=== PATIENT | female | born 1980 | race Caucasian/White ===

== ENCOUNTER → 2019-03-01 | Outpatient (CLI) | payer BC ==
--- NOTE | 2019-03-02 08:18 | MR ---
EXAMINATION TYPE: MR hip LT wo con DATE OF EXAM: 03/01/2019 COMPARISON: None. HISTORY: Lt Hip pain for 2 months per patient. Polyarthritis per order. Standard multiplanar, multisequence MRI departmental protocol Multiplanar, multisequence images of the pelvis focusing on the left hip were acquired. FINDINGS: Bone marrow signal intensity shows heterogeneity consistent with red marrow reconversion. A t intertrochanteric region laterally in the left proximal femur there is oval 1.6 cm lesion of T1 hyp ointensity and T2 hyperintensity coronal image 10 and sagittal image 11 without definitive cortical b reakthrough or adjacent soft tissue mass. There is focus of diminished T1 and increased T2 signal inv olving the posterior acetabulum axial image 16 with additional focus superior posterior acetabulum sa gittal image 20 noted. Bone marrow signal intensity in the femoral head is maintained. Cervical shape is present. No significant joint effusion is seen. No suspicious edema at level of greater or lesser trochanters bilaterally. Muscle bulk in bilateral t highs is symmetric and felt within normal limits. No groin adenopathy. No groin hernias are present. There is anteverted uterus seen with slight arcuate type morphology axial image 20. Small amount of f ree fluid pelvic cul-de-sac axial image 20 is present. No suspicious bowel dilatation. Visualized shahab dder is within normal limits. Follicles in bilateral ovaries noted axial image 20. There are additional areas of T2 hyperintensity in the left sacrum coronal image 13, right iliac bone near SI joint coronal image 13, as well as right acetabulum coronal image 7. IMPRESSION: 1. Focal osseous lesion lateral subtrochanteric region left proximal femur needs plain film correlati on. Areas of abnormal bone marrow signal intensity in the posterior and superior posterior glenoid of uncertain etiology. Metastatic disease would need to be considered given additional lesions througho ut the pelvis. Advise whole body bone scan follow-up and clinical correlation.
== END | disposition home or self-care (01) ==
LOC: RADMRIMAIN 18:58
PROVIDERS: ATTEND Internal Medicine Rheumatology
DX: M89.9 Disorder of bone, unspecified (principal); R93.7 Abnormal findings on diagnostic imaging of other parts of musculoskeletal system; M13.0 Polyarthritis, unspecified

== ENCOUNTER → 2019-03-03 | Outpatient (CLI) | payer BC ==
--- NOTE | 2019-03-03 15:21 | NM ---
EXAMINATION TYPE: NM bone scan whole body DATE OF EXAM: 03/03/2019 COMPARISON: MRI left hip 2 days ago. HISTORY: Disseminated malignant neoplasm per order. Recent abnormal MRI. Delayed whole-body scanning was performed following the injection of 21.2 mCi Tc 99m MDP. Images acq uired 3 hours post injection. FINDINGS: There is slightly more prominent radiotracer uptake inferior medial left acetabulum corresponding to one of the T2 hyperintense lesions on bone scan. There is focus of radiotracer uptake left mid cervic al spine also identified. Additional lesions throughout the pelvic structures including the iliac bon es and sacrum as well as proximal left femur subtrochanteric level do not show definitive areas of ra diotracer uptake. IMPRESSION: As above. No convincing evidence of metastatic disease to the bone. Metabolic processes n eed to be considered. Consider plain film correlation of proximal left femur lesion.
== END ==
LOC: RADNMMAIN 10:57
PROVIDERS: ATTEND Internal Medicine Rheumatology
DX: C80.0 Disseminated malignant neoplasm, unspecified (principal)
CPT/HCPCS: 78306; A9503

== ENCOUNTER → 2019-03-06 | Outpatient (CLI) | payer BC ==
--- NOTE | 2019-03-06 14:19 | CT ---
EXAMINATION TYPE: CT ChestAbdPelvis w con DATE OF EXAM: 03/06/2019 COMPARISON: Whole body bone scan March 03, 2019. MRI left hip March 01, 2019 HISTORY: Abnormal left hip xray, mri, and bone scan CT DLP: 416.7 mGycm. Automated Exposure Control for Dose Reduction was Utilized. CONTRAST: CT scan of the thorax, abdomen and pelvis is performed with IV Contrast, patient injected with 100 mL of Isovue 300. FINDINGS: LUNGS: There is medial right midlung masslike consolidation measuring 3.6 x 3.4 cm axial image 37 abu tting the medial pleural surface. Remainder of both lungs are clear There is no pleural effusion or p neumothorax seen. The tracheobronchial tree is patent. MEDIASTINUM: There are no greater than 1 cm hilar or mediastinal lymph nodes. No cardiomegaly or pe ricardial effusion is seen. OTHER: Dense fibroglandular tissue is seen in both breasts. LIVER/GB: No significant abnormality is appreciated. PANCREAS: No significant abnormality is seen. SPLEEN: No significant abnormality is seen. ADRENALS: No significant abnormality is seen. KIDNEYS: No significant abnormality is seen. BOWEL: Oral contrast reaches level of cecum. Evaluation of distal bowel suboptimal. Patient is very l ittle intra-abdominal fat making evaluation also slightly suboptimal. No suspicious small large bowel dilatation. GENITAL ORGANS: Anteverted uterus is present. LYMPH NODES: No greater than 1cm abdominal or pelvic lymph nodes are appreciated. OSSEOUS STRUCTURES: No definitive lytic or sclerotic lesions identified to correspond to the areas of concern on MRI left hip. OTHER: No significant additional abnormality is seen. IMPRESSION: Masslike consolidation medial anterior right midlung could reflect focal pneumonia or rou nd atelectasis but neoplasm is not excluded though felt less likely. Consider bronchoscopy or PET/CT to further evaluate this level.
--- NOTE | 2019-03-06 14:21 | CT ---
EXAMINATION TYPE: CT soft tissue neck w con DATE OF EXAM: 03/06/2019 HISTORY: Abnormal left hip xray, mri, and bone scan COMPARISON: NONE CT DLP: 213.1 mGycm. Automated Exposure Control for Dose Reduction was Utilized. TECHNIQUE: CT scan of the neck is performed with IV Contrast, patient injected with 100 mL of Isovue 300, axial images are obtained, coronal and sagittal reformatted images are reviewed. FINDINGS: Airway: No gross abnormality seen. Parotid/submandibular glands: No gross abnormality seen. Carotid/Vascular Structures: No significant plaque or stenosis at carotid bulb level bilaterally. Osseous Structures: Slight levoconvex scoliotic curvature centered upper thoracic spine may be positi onal. No definitive suspicious focal lytic or sclerotic lesions Other: No definitive greater than 1 cm neck adenopathy. IMPRESSION: No definitive suspicious masses or adenopathy.
== END ==
LOC: RADCTMAIN 12:06
PROVIDERS: ATTEND Internal Medicine Rheumatology
DX: C79.51 Secondary malignant neoplasm of bone (principal); C80.1 Malignant (primary) neoplasm, unspecified
CPT/HCPCS: 70491; 71260; 74177; Q9967

== ENCOUNTER → 2019-03-07 | Outpatient (CLI) | payer BC ==
--- NOTE | 2019-03-08 08:08 | XR ---
EXAMINATION TYPE: XR chest 2V DATE OF EXAM: 03/07/2019 COMPARISON: NONE HISTORY: Chest pain TECHNIQUE: Frontal and lateral views of the chest are obtained. FINDINGS: Right middle lobe masslike opacity may reflect pneumonia however underlying neoplasm is not excluded. Strict clinical correlation and follow-up until resolution is advised. No evidence for pneumothorax. No pleural effusion. The cardiac silhouette size is within normal limits. The osseous structures are grossly intact. IMPRESSION: 1. Right middle lobe masslike opacity may reflect pneumonia however underlying neoplasm is not exclu ded. Strict clinical correlation and follow-up until resolution is advised.
--- NOTE | 2019-03-08 08:09 | XR ---
EXAMINATION TYPE: XR Hip Bilateral and AP pelvis DATE OF EXAM: 03/07/2019 CLINICAL HISTORY: pain TECHNIQUE: Single view the pelvis is submitted. 2 views of the bilateral hips are also submitted. FINDINGS: No evidence for fracture, dislocation or bony lesion. Joint spaces are well-preserved. S I joints appear symmetric. IMPRESSION: 1. No acute fracture or dislocation seen. ICD 10 NO FRACTURE, INITIAL EVALUATION
--- NOTE | 2019-03-08 08:19 | MM ---
Reason for exam: additional evaluation requested from prior study. Last mammogram was performed 7 years and 5 months ago. History: Patient had first child at age 33. Took hormonal contraceptives for 13 years beginning at age 19. Physical Findings: Nurse did not find any significant physical abnormalities on exam. MG 3D Diag Mammo W/Cad JUAN Bilateral CC and MLO view(s) were taken. LM, CC with magnification, and LM with magnification view(s) were taken of the right breast. Prior study comparison: October 16, 2011, CAD bilateral diagnostic mammogram. The breast tissue is extremely dense which could obscure a lesion on mammography. Finding: There are fine, diffuse/scattered calcifications in both breasts. There are more focal grouping punctate calcifications right upper outer quadrant posterior position. These results were verbally communicated with the patient and result sheet given to the patient on 03/07/19. ASSESSMENT: Suspicious, BI-RAD 4 RECOMMENDATION: Stereotactic core biopsy of the right breast. Called Dr. Barrios with mammographic findings and Dr. Barrios will order biopsy for patient to have done with radiologist and will give result to patient, will refer to surgeon if needed. Biopsy scheduled for 03/10/19 at 10:20. PRELIMINARY REPORT CALLED AND FAXED TO DR. BARRIOS ON 06/18/19.
== END | disposition home or self-care (01) ==
LOC: RADMAMWWP 14:53
PROVIDERS: ATTEND Internal Medicine Rheumatology
DX: C80.1 Malignant (primary) neoplasm, unspecified (principal); M25.552 Pain in left hip
CPT/HCPCS: 71046; 73521; 77062; 77066

== ENCOUNTER → 2019-03-10 | Day surgery (SDC) | payer BC ==
[2019-03-10 09:36] VITALS: RESP 16; BMI 22.1
[2019-03-10 12:08] VITALS: BP 117/73; PULSE 74; TEMP 98.4
--- NOTE | 2019-03-10 12:42 | MM ---
Stereotactic Mammotome core biopsy right breast. HISTORY: Microcalcifications right breast The microcalcifications in question within the right breast were targeted by the undersigned. Procedure was performed by the undersigned. Informed consent was obtained and all of the patients questions were answered. The standard sterile technique was utilized and appropriate local anesthesia was obtained with 1% lidocaine. Mammotome probe was advanced and multiple core samples were obtained and sent to pathology for interpretation. Microclip marker was deployed at the site of biopsy. Post procedural mammogram demonstrates appropriate deployment of radiopaque clip marker. The patient tolerated the procedure well and left the department in stable condition. Pathology results are pending. IMPRESSION: Successful stereotactic core biopsy right breast with pathology results pending. Pathology Results: Benign RIGHT BREAST, STEREOTACTIC CORE BIOPSY: Fibrocystic changes including fibrosis, adenosis and calcifications. Negative for malignancy. Recommendation Follow up mammogram of the right breast in 6 months. DAVID
== END ==
LOC: RADMAMWWP 09:13
PROVIDERS: ATTEND Internal Medicine Rheumatology
DX: N60.31 Fibrosclerosis of right breast (principal); N60.21 Fibroadenosis of right breast; R92.0 Mammographic microcalcification found on diagnostic imaging of breast
CPT/HCPCS: 88305; 19081; J2001

== ENCOUNTER → 2019-03-11 | Outpatient (CLI) | payer BC ==
--- NOTE | 2019-03-13 06:53 | PE ---
EXAMINATION TYPE: PET CT fusion skull to thigh DATE OF EXAM: 03/11/2019 COMPARISON: CT neck and CT chest abdomen and pelvis March 06, 2019. HISTORY: Lung mass. TECHNIQUE: Following the intravenous administration of 12.07 mCi of F-18 FDG, whole body images are performed from the skull base to the midthigh. Images are reviewed on the computer in the coronal, a xial, and sagittal planes. Reconstructed rotating images are created on independent workstation and reviewed on the computer. A noncontrast CT is performed in conjunction with the PET scan. SCAN: Initial Scan FINDINGS: SKULL BASE AND NECK: There are suspicious hypermetabolic right supraclavicular lymph node along the inferior margin right thyroid gland measuring 13 x 8 mm axial image 57, max SUV is 3.07. CHEST, MEDIASTINUM, AND HILAR REGION: There is suspicious hypermetabolic medial right mid lung mass w ith peripheral atelectasis anteriorly measuring roughly 2.3 x 2.1 cm axial image 95, max SUV is 6.03 on PET axial image 99. There is abnormal thoracic adenopathy for reference there is subcarinal 2.0 x 1.0 cm minimally hyperm etabolic lymph node axial image 82 max SUV is 2.50. There is mildly hypermetabolic subcentimeter righ t hilar lymph node on axial image 78, Max SUV is 1.82. There is hypermetabolic anterior superior medi astinal lymph node measuring 1.2 x 1.0 cm axial image 68, max SUV is 3.16. No areas of suspicious hypermetabolic uptake or masses identified in either breast or axilla. ABDOMEN AND PELVIS: No suspicious hypermetabolic uptake. No adrenal masses. OSSEOUS STRUCTURES: No definitive areas of abnormal hypermetabolic uptake to correspond to the T2 hyp erintense osseous lesions in the left proximal femur and left sacrum for reference. OTHER CT: Circular device in vaginal canal likely device to prevent intrauterine conception. Some con trast from recent CT remains in distal bowel loops. IMPRESSION: Only suspicious area is anterior right midlung masslike consolidation with nonspecific th oracic lymph nodes as detailed above. Primary lung carcinoma cannot be excluded. No suspicious hyperm etabolic osseous lesions noted which correlates with bone scan March 03, 2019.
== END | disposition home or self-care (01) ==
LOC: RADPETMAIN 09:49
PROVIDERS: ATTEND Internal Medicine Rheumatology
DX: R91.8 Other nonspecific abnormal finding of lung field (principal)
CPT/HCPCS: 78815; A9552

== ENCOUNTER 2019-03-28 08:51 | Day surgery (SDC) | payer BC ==
[2019-03-28 09:46] VITALS: PULSE 100; RESP 18; TEMP 98.1
[2019-03-28] MEDS ORDERED: ALPRAZolam 0.5 MG TAB PO STA (09:49)
[2019-03-28 11:54] VITALS: BP 113/55
--- NOTE | 2019-03-28 13:02 | US ---
EXAMINATION TYPE: US biopsy lymph node, US FNA first lesion DATE OF EXAM: 03/28/2019 HISTORY: Abnormal PET/CT, right supraclavicular adenopathy. FINDINGS: Maximal barrier technique was utilized. The skin overlying a suitable path to the patient' s supraclavicular adenopathy on the right was localized with ultrasound and the overlying skin preppe d and draped. Ultrasound was utilized with sterile technique. Lidocaine was used for local anesthes ia. 2 passes with a 25-gauge needle were performed and fine-needle aspiration submitted to cytology. A skin cosme was made with a scalpel. An 18-gauge needle was advanced under direct ultrasound guidan ce and core specimen obtained of the mass. Second core was then obtained. Specimen submitted in forma priscilla and additional core and sterile saline to Pathology. Following the procedure, hemostasis achieve d and the patient is discharged in stable condition without complication. IMPRESSION:STATUS POST ULTRASOUND GUIDED CORE BIOPSY OF right supraclavicular adenopathy, PATHOLOGY I S PENDING. THIS PROCEDURE IS PERFORMED BY THE UNDERSIGNED.
== END 2019-03-28 11:40 | disposition home or self-care (01) ==
LOC: RADPROMAIN 08:51
PROVIDERS: ATTEND Internal Medicine Critical Care Medicine
DX: R59.9 Enlarged lymph nodes, unspecified (principal)
CPT/HCPCS: 10005; 38505; 76942; 88173; 88305; 88341; 88342

== ENCOUNTER 2019-04-17 09:22 | Day surgery (SDC) | payer BC ==
[2019-04-14 12:48] VITALS: BMI 21.8
[~2019-04-17 09:22] MED LIST: DEXAMETHASONE SOD PHOSPHATE 10 MG/ML 1 ML VIAL IV ONE; HYDROmorphone 0.5 MG/0.5 ML SYRINGE IVP PRN; LACTATED RINGERS 1,000 ML IV SCH; MIDAZOLAM 2 MG/2 ML VIAL IV PRN; ONDANSETRON 4 MG/2 ML VIAL IVP ONE; Pre Op ABX Message 1 EACH MISC MISCELLANE ONE; SCOPOLAMINE 1.5MG/72HR PATCH TRANSDERM ONE
[2019-04-17] MEDS ORDERED: MIDAZOLAM 2 MG/2 ML VIAL ONE (10:05)
[2019-04-17] MEDS ORDERED: LIDOCAINE 1% INJ 10MG/ML (20 ML MDV) ONE (10:05)
[2019-04-17] MEDS ORDERED: PROPOFOL 10 MG/ML 20 ML VIAL IV ONE (10:05)
[2019-04-17] MEDS ORDERED: PHENYLEPHRINE-0.9% NACL SYG 1 MG/10 ML SYRINGE ONE (10:05)
[2019-04-17] MEDS ORDERED: fentaNYL (PF) 50 MCG/ML 2 ML AMP ONE (10:05)
[2019-04-17] MEDS ORDERED: KETOROLAC 30 MG/ML 1 ML VIAL ONE (10:05)
[2019-04-17] MEDS ORDERED: IV FLUID CONTINUATION 800 ML IV ONE ×2 (10:10)
[2019-04-17] MEDS ORDERED: LIDOCAINE (PF) 10 MG/ML 2 ML VIAL SQ ONE ×2 (10:24→10:35)
[2019-04-17] MEDS ORDERED: HEPARIN SODIUM,PORCINE 100 UNIT/ML 5 ML VIAL IV ONE ×2 (10:24)
[2019-04-17] MEDS ORDERED: SODIUM CHLORIDE 0.9% 100 ML with ceFAZolin 2,000 MG IV ONE ×2 (10:30)
[2019-04-17] MEDS ORDERED: LACTATED RINGERS 1,000 ML IV ONE (10:51)
[2019-04-17] MEDS ORDERED: NALOXONE 0.4 MG/ML 1 ML VIAL IV PRN (11:04)
[2019-04-17 11:16] VITALS: TEMP 97
--- NOTE | 2019-04-17 11:16 | P.OP ---
Date of Procedure: 04/17/19 Procedure(s) Performed: PREOPERATIVE DIAGNOSIS: Lymphoma POSTOPERATIVE DIAGNOSIS: Same PROCEDURE: Port-A-Cath placement SURGEON: Víctor EBL: Minimal ANESTHESIA: Sedation COMPLICATIONS: None OPERATIVE PROCEDURE: Patient was brought and placed on the operative table in the supine position. The patient was sedated per anesthesia that time. The chest and neck were prepped and draped in usual sterile fashion. The ultrasound probe was used to identify the location of the right internal jugular vein. The skin was localized with lidocaine. The Seldinger needle was advanced into the IJ under ultrasound guidance. The wire was advanced through the needle under fluoroscopic guidance into the superior vena cava. A port pocket was created in the right infraclavicular location. The catheter was tunneled from the wire entrance site to the port pocket. The port was then connected to the catheter. The dilator introducer was threaded over the guidewire. The guidewire and dilator were then removed. The catheter was advanced through the introducer and introducer was then removed. The tip was seen to be in the right atrial junction. Port was flushed with both saline and a Hep-Lock solution. There was good flow both in and out of the port. The port was sutured in underlying tissues using 3-0 silk sutures. The subcutaneous tissues were reapproximated using 3-0 Vicryl sutures and the skin at both locations using 4-0 Monocryl sutures. Skin glue and sterile dressings then applied. DISPOSITION: Stable to recovery room
--- NOTE | 2019-04-17 11:21 | FL ---
EXAMINATION TYPE: FL guided central line placemt DATE OF EXAM: 04/17/2019 CLINICAL HISTORY: Newly diagnosed neoplasm. TECHNIQUE: Fluoroscopy. COMPARISON: None. FINDINGS: Fluoroscopic guidance was provided during Port-A-Cath insertion procedure performed by Dr. Renee. A total of 5 seconds of fluoroscopic time was utilized during the procedure and single spot fluoroscopic image is acquired. Single image acquired shows portion of right internal jugular Medipor t catheter and guidewire. IMPRESSION: As Above.
--- NOTE | 2019-04-17 11:47 | XR ---
EXAMINATION TYPE: XR chest 1V confirm line [facility] DATE OF EXAM: 04/17/2019 COMPARISON: Chest x-ray March 07, 2019. HISTORY: Central line placement. TECHNIQUE: Single AP portable frontal upright view of the chest is obtained. FINDINGS: There is new right internal jugular Mediport catheter terminating at cavoatrial junction. There is no new suspicious focal air space opacity, pleural effusion, or pneumothorax seen. The card iac silhouette size is within normal limits. Right pericardial mass like lesion or neoplasm silhouet ting portions of right heart border remains present. The osseous structures are intact. IMPRESSION: New right internal jugular Mediport catheter terminating at cavoatrial junction. No pneu mothorax is evident.
[2019-04-17 12:06] VITALS: RESP 18
[2019-04-17 12:23] VITALS: BP 107/68; PULSE 79
== END 2019-04-17 12:30 | disposition home or self-care (01) ==
LOC: OR 09:22
PROVIDERS: ATTEND Surgery
DX: C85.90 Non-Hodgkin lymphoma, unspecified, unspecified site (principal); Z79.891 Long term (current) use of opiate analgesic; Z79.899 Other long term (current) drug therapy; Z80.9 Family history of malignant neoplasm, unspecified; Z87.891 Personal history of nicotine dependence; Z79.1 Long term (current) use of non-steroidal anti-inflammatories (NSAID)
CPT/HCPCS: 77001; 36571; C1788; J2250; J2001 ×2; J1642; J1100; J2405; J0690; J3010; J1885; J2370; J2704

== ENCOUNTER → 2019-06-17 | Outpatient (CLI) | payer BC ==
--- NOTE | 2019-06-18 14:46 | PE ---
Nuclear medicine PET/CT or graph history: Lymphoma, subsequent Patient received 12.1 mCi F-18 FDG intravenously in delayed scanning was performed from the skull bas e to the mid thighs. Localization and attenuation correction CT scan was performed. Correlation to prior nuclear medicine PET/CT 03/11/2019 Neck and chest: There is no evident cervical, supraclavicular, mediastinal, axillary, or hilar adenop athy. The right lung shows some consolidation in the middle lobe level, right upper lobe adjacent to the right heart. There is some associated air bronchograms. There is no pleural or pericardial effusi on. Port-A-Cath is present in the right pectoral region, catheter courses via the right internal jugu lar approach to the level of the cavoatrial junction. ABDOMEN: There is no retroperitoneal adenopathy. Retrocaval aortic left renal vein is noted incidenta lly. No evident liver mass, no suspicious hypermetabolic uptake. Osseous structures are stable. No suspicious uptake IMPRESSION: No evident adenopathy or suspicious hypermetabolic uptake, improvement compared to previo us exam. Abnormal density in the right lung. Correlate for possible pneumonia, posttreatment change.
== END | disposition home or self-care (01) ==
LOC: RADPETMAIN 09:58
PROVIDERS: ATTEND Internal Medicine Hematology & Oncology
DX: J98.4 Other disorders of lung (principal); C81.78 Other Hodgkin lymphoma, lymph nodes of multiple sites; Z92.21 Personal history of antineoplastic chemotherapy
CPT/HCPCS: 78815; A9552

== ENCOUNTER → 2019-08-30 | Outpatient (CLI) | payer BC ==
--- NOTE | 2019-08-30 17:10 | CT ---
EXAMINATION TYPE: CT ChestAbdPelvis w con DATE OF EXAM: 08/30/2019 INDICATION: Hodgkin's lymphoma. COMPARISON: Head CT 06/17/2019 CT DLP: 457.9 mGycm CONTRAST: Performed with Oral Contrast and with IV Contrast, patient injected with 100ml mL of Isovue 300. TECHNIQUE: Axial images at 5 mm thick sections. Reconstructed images in the coronal plane. Delayed images through the kidneys. FINDINGS: CT CHEST: Portion of the thyroid visualized is normal. There is a solid-appearing mass in the anterior right mediastinal border measuring 4.0 x 1.5 cm. This was present on the PET/CT. No enlarged mediastinal or hilar adenopathy is evident. The ascending aorta diameter at the level of the main pulmonary artery is 2.7 cm. The main pulmonary artery diameter at the bifurcation is 2.[address] ABDOMEN: Liver: There is a 0.4 cm hypodensity within the posterior right lobe liver. Series 3 image 65. This i s too small to classify. This could be related to a tiny cyst. A metastatic lesion cannot be excluded . This is not identified on delayed images. Spleen: Normal Pancreas: Normal Adrenal glands: The adrenal glands are normal. Gallbladder: Normal Kidneys: No masses are evident. No hydronephrosis is present. No cysts are present. Delayed images were obtained through the kidneys, which remain unremarkable. Aorta: Normal Inferior vena cava: Normal. CT PELVIS: Loops of bowel within the abdomen and pelvis are normal. There are loops of bowel which are incom pletely distended or lack oral contrast limiting their evaluation. Appendix: Not visualized. No dilated tubular structures or inflammatory changes are evident. Urinary bladder: Normal. Genitourinary structures: Uterus is normal. There is a 2.6 cm left ovarian cyst. Couple small follicl es may be within the right ovary. No free fluid is within the pelvis. Osseous structures: No suspicious lytic or sclerotic lesions. Direct lymphadenopathy: Mediastinum patti ears clear. Axillary regions are normal. No retrocrural adenopathy is evident. No periaortic or retro caval adenopathy is identified. Iliac chains appear normal. Obturator canals are normal. Inguinal reg ions are normal. IMPRESSIONS: 1. Stable appearance of a masslike area adjacent to the right cardio phrenic mediastinum. 2. Tiny hypodensity identified on early phase contrast within the posterior medial right lobe liver t oo small to classify. This is not evident on delayed images. 3. 2.6 cm left ovarian cyst. 4. No suspicious enlarged lymph nodes.
== END | disposition home or self-care (01) ==
LOC: RADPROMAIN 13:45
PROVIDERS: ATTEND Internal Medicine Hematology & Oncology
DX: N83.202 Unspecified ovarian cyst, left side (principal); R93.2 Abnormal findings on diagnostic imaging of liver and biliary tract; C81.98 Hodgkin lymphoma, unspecified, lymph nodes of multiple sites
CPT/HCPCS: 82565; 84520; 71260; 74177; 36415; J1642; Q9967 ×2

== ENCOUNTER → 2019-11-02 | Outpatient (CLI) | payer BC ==
[2019-11-02 14:34] LABS: African American GFR (CKD) >90 (>60 ml/min/1.73 sqM); Blood Urea Nitrogen 14 mg/dL (7-17); Non-African American GFR(CKD) >90 (>60 ml/min/1.73 sqM)
--- NOTE | 2019-11-03 04:34 | CT ---
EXAMINATION TYPE: CT ChestAbdPelvis w con DATE OF EXAM: 11/02/2019 COMPARISON: 08/30/2019 and 06/17/2019. 03/11/2019. HISTORY: 39-year-old female follow-up Hodgkin's lymphoma. TECHNIQUE: Contiguous axial scanning of the chest, abdomen, and pelvis performed with IV Contrast, pa tient injected with 100 mL of Isovue 300. Delayed images through the kidneys were obtained. Coronal/s agittal reconstructions performed. CT DLP: 684.2 mGycm Automated exposure control for dose reduction was used. FINDINGS: CHEST: Right anterior chest wall ejection port with catheter tip at the cavoatrial junction. Heart normal size without pericardial effusion. Previous hypermetabolic high right paratracheal lymph node remains small at 5 mm. No enlarging thorac ic lymphadenopathy. Focal consolidation medial right middle lobe measures 3.9 x 1.5 cm, unchanged from 08/30/2019 but sma ller from the initial PET/CT of 03/11/2019 where it measured 4.9 x 2.2 cm. No new consolidation or pleural effusion. ABDOMEN: No focal liver lesion or biliary ductal dilatation. Portal venous system is patent. Gallbladder, adrenal glands, kidneys, spleen, and pancreas appear within normal limits. Tiny fatty umbilical hernia. No dilated small bowel, free fluid, or free air. No mesenteric or retroperitoneal lymphadenopathy. Oral contrast progressed to the lower descending colon. No pericolonic inflammatory change. Normal ap pendix. PELVIS: Bladder is urine distended. Uterus anteverted. Both ovaries are visualized. No abnormal fluid collect ion in the pelvis or pelvic lymphadenopathy. BONES: A bone island within the posterior right femoral head is unchanged. No osseous destructive process. IMPRESSION: 1. THE ORIGINALLY HYPERMETABOLIC HIGH RIGHT PARATRACHEAL LYMPH NODE REMAINS SMALL AT 5 MM. NO NEW OR ENLARGING LYMPHADENOPATHY. 2. STABLE FOCAL CONSOLIDATION MEDIAL RIGHT MIDDLE LOBE AT 3.9 X 1.5 CM COMPARED TO 08/30/2019. SMA LLER COMPARED TO THE INITIAL PET/CT OF 03/11/2019 WHERE IT MEASURED 4.9 X 2.2 CM.
== END | disposition home or self-care (01) ==
LOC: RADPROMAIN 13:43
PROVIDERS: ATTEND Internal Medicine Hematology & Oncology
DX: C81.98 Hodgkin lymphoma, unspecified, lymph nodes of multiple sites (principal); R91.8 Other nonspecific abnormal finding of lung field
CPT/HCPCS: 82565; 84520; 71260; 74177; J1642; Q9967 ×2

== ENCOUNTER → 2019-11-03 | Outpatient (CLI) | payer BC ==
--- NOTE | 2019-11-03 10:24 | MM ---
Reason for exam: follow-up at short interval from prior study. Last mammogram was performed 8 months ago. History: Patient has history of other cancer at age 38 and had first child at age 33. Benign MG stereo VAD BX RT of the right breast, March 10, 2019. Took hormonal contraceptives for 13 years beginning at age 19. Physical Findings: Nurse did not find any significant physical abnormalities on exam. MG 3D Diag Mammo W/Cad RT CC and MLO view(s) were taken of the right breast. Prior study comparison: March 07, 2019, bilateral MG 3d diag mammo w/cad JUAN. The breast tissue is heterogeneously dense. This may lower the sensitivity of mammography. Previous mammotome biopsy in the right breast. Stable scattered calcifications and grouped upper outer quadrant calcifications at the previous biopsy site. These results were verbally communicated with the patient and result sheet given to the patient on 11/03/19. ASSESSMENT: Benign, BI-RAD 2 RECOMMENDATION: Routine screening mammogram of both breasts at age 42. (or sooner if clinically indicated)
== END | disposition home or self-care (01) ==
LOC: RADMAMWWP 07:49
PROVIDERS: ATTEND Family Medicine
DX: R92.8 Other abnormal and inconclusive findings on diagnostic imaging of breast (principal)
CPT/HCPCS: 77061; 77065

== ENCOUNTER → 2020-01-20 | Outpatient (CLI) | payer BC ==
--- NOTE | 2020-01-23 07:21 | PE ---
EXAMINATION TYPE: PET CT fusion skull to thigh DATE OF EXAM: 01/20/2020 COMPARISON: Most recent CT November 02, 2019 and older CTs. Prior PET/CT June 17, 2019 and older PET/ CT. HISTORY: Hodgkin lymphoma diagnosed on biopsy March 2019. Completed chemotherapy October 23, 2019. TECHNIQUE: Following the intravenous administration of 10.0 mCi of F-18 FDG, whole body images are p erformed from the skull base to the midthigh. Images are reviewed on the computer in the coronal, ax ial, and sagittal planes. Reconstructed rotating images are created on independent workstation and r eviewed on the computer. A noncontrast CT is performed in conjunction with the PET scan. SCAN: Subsequent Scan FINDINGS: Mean SUV mediastinum: 0.83 Mean SUV liver : 1.67 SKULL BASE AND NECK: No recurrent areas of suspicious hypermetabolic uptake. CHEST, MEDIASTINUM, AND HILAR REGION: No recurrent of suspicious hypermetabolic uptake. Persistent ma sslike consolidation anterior right midlung abutting the mediastinum measuring roughly 3.9 x 1.7 cm a xial image 96 remains ametabolic not significantly changed from most recent CT. ABDOMEN AND PELVIS: Normal excretion is seen. No new areas of suspicious hypermetabolic uptake OSSEOUS STRUCTURES: No new areas of suspicious hypermetabolic uptake. OTHER CT: Persistent right internal jugular Mediport catheter terminating in right atrium. Patient has little intra-abdominal fat. There is rounded density suspected desired contraceptive in t he lower uterine segment/vaginal canal is redemonstrated. IMPRESSION: No new areas of suspicious hypermetabolic uptake to suggest active neoplastic recurrence. No significant change from most recent PET/CT. No new adenopathy noted.
== END | disposition home or self-care (01) ==
LOC: RADPETMAIN 14:29
PROVIDERS: ATTEND Internal Medicine Hematology & Oncology
DX: C81.78 Other Hodgkin lymphoma, lymph nodes of multiple sites (principal)
CPT/HCPCS: 78815; A9552

== ENCOUNTER → 2020-04-25 | Outpatient (CLI) | payer BC ==
--- NOTE | 2020-04-25 12:29 | CT ---
EXAMINATION TYPE: CT ChestAbdPelvis w con DATE OF EXAM: 04/25/2020 COMPARISON: Most recent CT November 02, 2019 and older studies. Most recent PET/CT January 20, 2020 and o lder studies. HISTORY: Hodgkins lymphoma CT DLP: 427.30 mGycm. Automated Exposure Control for Dose Reduction was Utilized. CONTRAST: CT scan of the thorax, abdomen and pelvis is performed with oral and with IV Contrast, patient inject ed with 100 mL of Isovue 300. FINDINGS: LUNGS: There is persistent masslike consolidation anterior right mid lung medially abutting the media stinum measuring roughly 3.3 x 1.5 cm axial image 33 not significantly changed from most recent studi es where was ametabolic. No new nodules or masses. There is no pleural effusion or pneumothorax see n. The tracheobronchial tree is patent. MEDIASTINUM: There are no new greater than 1 cm hilar or mediastinal lymph nodes. Stable subcentimete r anterior superior mediastinal lymph nodes near the Three-vessel takeoff axial image 17. No cardiomegaly or pericardial effusion is seen. OTHER: Stable right internal jugular Mediport catheter. LIVER/GB: Stable mild hepatomegaly PANCREAS: No significant abnormality is seen. SPLEEN: No significant abnormality is seen. ADRENALS: No significant abnormality is seen. KIDNEYS: No significant abnormality is seen. BOWEL: Oral contrast reaches level of the sigmoid colon. Patient has very little intra-abdominal fat. No suspicious small or large bowel dilatation. GENITAL ORGANS: Anteverted uterus. LYMPH NODES: No greater than 1cm abdominal or pelvic lymph nodes are appreciated. OSSEOUS STRUCTURES: Stable tiny benign bone island right femoral head coronal image 32. OTHER: Stable small fat-containing umbilical hernia. IMPRESSION: No new or enlarging suspicious mass or adenopathy suggest active neoplastic recurrence. No significant change from most recent CT and PET/CT.
== END | disposition home or self-care (01) ==
LOC: RADPROMAIN 09:51
PROVIDERS: ATTEND Internal Medicine Hematology & Oncology
DX: C81.98 Hodgkin lymphoma, unspecified, lymph nodes of multiple sites (principal)
CPT/HCPCS: 36415; 71260; 74177; J1642; Q9967

== ENCOUNTER → 2020-08-01 | Outpatient (CLI) | payer BC ==
[2020-08-01 14:56] LABS: African American GFR (CKD) >90 (>60 ml/min/1.73 sqM); Blood Urea Nitrogen 15 mg/dL (7-17); Non-African American GFR(CKD) >90 (>60 ml/min/1.73 sqM)
--- NOTE | 2020-08-01 22:50 | CT ---
EXAMINATION TYPE: CT ChestAbdPelvis w con DATE OF EXAM: 08/01/2020 COMPARISON: 04/25/2020 HISTORY: f/u lymphoma CT DLP: 457.8 mGycm, Automated exposure control for dose reduction was used. CONTRAST: Performed injected with 100 mL of Isovue 300. TECHNIQUE: Axial images were obtained at 5 mm thick sections. Reconstructed images are reviewed on [employer] computer in the coronal plane. FINDINGS: Portion of the thyroid visualized is normal. There is a focal consolidation within the right middle lobe adjacent to the mediastinal border. This density was present previously currently measures 4.8 x 1.2 cm. This appears stable from comparison. No enlarged mediastinal or hilar adenopathy is evident. The ascending aorta diameter at the level o f the main pulmonary artery is 2.8 cm. The main pulmonary artery diameter at the bifurcation is 2.[address] ABDOMEN: Liver: Normal Spleen: Normal Pancreas: Normal Adrenal glands: The adrenal glands are normal. Gallbladder: Normal Kidneys: No masses are evident. No hydronephrosis is present. No cysts are present. Delayed images were obtained through the kidneys, which remain unremarkable. Aorta: Normal Inferior vena cava: Normal. CT PELVIS: Loops of bowel within the abdomen and pelvis are normal. There are loops of bowel which are incom pletely distended or lack oral contrast limiting their evaluation. Appendix: Not identified. No suspicious inflammatory changes are evident. Urinary bladder: Normal. Genitourinary structures: Uterus is normal. There appear to be several cysts on the right ovary. Left adnexal region appears normal. Osseous structures: No suspicious lytic or sclerotic lesions. Adenopathy: No suspicious mediastinal or hilar adenopathy is evident. No retrocrural adenopathy is ev ident. Periaortic and retrocaval adenopathy is not evident. Obturator canal and iliac chains appear n ormal. No enlarged inguinal adenopathy is evident. Axillary adenopathy is not identified. IMPRESSIONS: 1. No suspicious abnormality to suggest recurrent or metastatic lymphoma.
== END | disposition home or self-care (01) ==
LOC: RADPROMAIN 13:28
PROVIDERS: ATTEND Internal Medicine Hematology & Oncology
DX: C81.90 Hodgkin lymphoma, unspecified, unspecified site (principal)
CPT/HCPCS: 82565; 84520; 71260; 74177; 36415; J1642; Q9967

== ENCOUNTER → 2020-08-16 | Outpatient (CLI) | payer BC ==
--- NOTE | 2020-08-18 15:00 | PE ---
Nuclear medicine PET/CT HISTORY: Hodgkin's disease, C 81.78, subsequent lung Patient received 10.1 mCi F-18 FDG intravenously, delayed scanning was performed from the skull base to the mid thighs. Localization and attenuation correction CT scan was performed. Correlation to prior nuclear medicine PET/CT 01/20/2020, CT 08/01/2020 Chest and neck: There is no supraclavicular or cervical adenopathy. No mediastinal, axillary, or miryam r adenopathy, no suspicious uptake. There is a port present in the right pectoral region and coursing via a right jugular approach with the distal tip in the right atrium. No evident lung mass, no pleur al or pericardial effusion. ABDOMEN: There is no evident liver mass. No retroperitoneal adenopathy. No ascites. No suspicious upt jaswinder. Uptake noted along the endometrium may be physiologic. Foreign body again noted within the vagin a. Osseous structures show no suspicious uptake. IMPRESSION: Stable exam. Recurrence is not evident.
== END | disposition home or self-care (01) ==
LOC: RADPETMAIN 13:54
PROVIDERS: ATTEND Internal Medicine Hematology & Oncology
DX: C81.78 Other Hodgkin lymphoma, lymph nodes of multiple sites (principal)
CPT/HCPCS: 78815; A9552

== ENCOUNTER → 2020-11-07 | Outpatient (CLI) | payer BC ==
--- NOTE | 2020-11-09 15:13 | CT ---
EXAMINATION TYPE: CT ChestAbdPelvis w con DATE OF EXAM: 11/07/2020 COMPARISON: 08/16/2020, 04/25/2020, 01/20/2020 HISTORY: 40-year-old female Hodgkin's lymphoma. TECHNIQUE: Contiguous axial scanning of the chest, abdomen, and pelvis performed with IV Contrast, pa tient injected with 100 mL of Isovue M300. Delayed images through the kidneys were obtained. Coronal/ sagittal reconstructions performed. CT DLP: 516.4 mGycm Automated exposure control for dose reduction was used. FINDINGS: CHEST: Right anterior chest wall injection port with catheter tip in the upper right atrium. Heart normal size without pericardial effusion. Aorta normal caliber with conventional arch vessel branching anatomy. No thoracic lymphadenopathy by CT size criteria. Focal consolidation medial right middle lobe remains unchanged back to at least 01/20/2020. No new suspicious pulmonary nodules, consolidation, pleural effusion. ABDOMEN: No focal liver lesion or biliary ductal dilatation. Portal venous system is patent. Gallbladder, adrenal glands, kidneys, spleen, and pancreas within normal limits. Retroaortic left renal vein. No mesenteric or retroperitoneal lymphadenopathy. Appendix not clearly identified. No secondary findings of acute appendicitis in the right lower quadr ant. Mild stool burden. No pericolonic inflammatory change. PELVIS: Bladder is urine distended. Uterus anteverted. A menstrual cup is demonstrated. Both ovaries are vis ualized. Trace cul-de-sac free fluid likely physiologic. No pelvic lymphadenopathy. BONES: No osseous destructive process. IMPRESSION: STABLE MEDIAL RIGHT MIDDLE LOBE AREA OF CONSOLIDATION BACK TO AT LEAST 01/20/2020, LIKELY SITE OF MARCO ANTONIO ANGELO DISEASE. NO ENLARGING MASS OR NEW LYMPHADENOPATHY TO SUGGEST RECURRENCE/PROGRESSION.
== END | disposition home or self-care (01) ==
LOC: RADPROMAIN 12:28
PROVIDERS: ATTEND Internal Medicine Hematology & Oncology
DX: C81.98 Hodgkin lymphoma, unspecified, lymph nodes of multiple sites (principal); Z95.828 Presence of other vascular implants and grafts
CPT/HCPCS: 71260; 74177; J1642; Q9967 ×2

== ENCOUNTER 2020-11-09 17:26 | Emergency (ER) | payer BC ==
[2020-11-09 17:44] VITALS: BP 143/85; PULSE 67; RESP 18; TEMP 98.8
--- NOTE | 2020-11-09 17:50 | ED ---
Wound/Laceration HPI - General Chief Complaint: Wound/Laceration Stated Complaint: finger lac Source: patient Mode of arrival: ambulatory Limitations: no limitations - History of Present Illness Initial Comments: 32-year-old female presenting to the emergency department chief complaint of a finger laceration. Patient reports she was using a clean knife when she has lacerated the posterior aspect of her right second digit. Patient reports she might be ALLERGIC to lidocaine so the urgent care would not perform any local anesthesia. Patient came to emergency department [place] use an alternative to lidocaine. She denies any numbness or tingling. States tetanus is up-to-date. Has full range of motion in the right second digit. No blood thinners. - Related Data Home Medications Medication Instructions Recorded Confirmed Sertraline [Zoloft] 100 mg PO HS 03/08/19 04/17/19 HYDROcodone/APAP 10-325MG [[place] 1 tab PO Q12HR PRN 03/23/19 04/17/19 10-325] Ibuprofen 200 mg PO Q4HR PRN 03/23/19 04/17/19 traMADol HCL [Ultram] 100 mg PO Q6HR PRN 04/14/19 04/17/19 Previous Rx's Medication Instructions Recorded HYDROcodone/APAP 10-325MG [[place] 1 tab PO Q6HR PRN 3 Days #12 tab 04/17/19 10-325] Allergies Allergy/AdvReac Type Severity Reaction Status Date / Time No Known Allergies Allergy Verified 11/09/20 17:44 Review of Systems ROS Statement: Those systems with pertinent positive or pertinent negative responses have been documented in the HPI. ROS Other: All systems not noted in ROS Statement are negative. Past Medical History Past Medical History: Cancer Additional Past Medical History / Comment(s): DX WITH HOGROBERTINS LYMPOMA- remission. 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 mild exercise-induced asthma not requiring an inhaler. History of Any Multi-Drug Resistant Organisms: None Reported Additional Past Surgical History / Comment(s): [place] teeth extraction. BREAST BX, AND LYMPHNODE BX Past Anesthesia/Blood Transfusion Reactions: No Reported Reaction Past Psychological History: Anxiety, Depression Past Alcohol Use History: Occasional Past Drug Use History: None Reported - Past Family History Father Family Medical History: Hyperlipidemia Sister(s) Family Medical History: Hypertension General Exam Limitations: no limitations General appearance: alert, in no apparent distress Head exam: Present: atraumatic, normocephalic, normal inspection Eye exam: Present: normal appearance, PERRL, EOMI Pupils: Present: normal accommodation ENT exam: Present: normal exam Neck exam: Present: normal inspection, full ROM. Absent: tenderness Respiratory exam: Present: normal lung sounds bilaterally. Absent: respiratory distress, wheezes, rales Cardiovascular Exam: Present: regular rate, normal rhythm, normal heart sounds Extremities exam: Present: normal inspection (2 cm laceration a posterior aspect of the right second digit. No visible bone.), full ROM, normal capillary refill. Absent: tenderness, pedal edema, joint swelling, calf tenderness Back exam: Present: normal inspection, full ROM. Absent: tenderness, CVA tenderness (R), CVA tenderness (L) Neurological exam: Present: alert, oriented X3 Psychiatric exam: Present: normal affect, normal mood Skin exam: Present: warm, dry, intact, normal color Course Vital Signs 11/09/20 17:41 Temperature 98.8 F Pulse Rate 67 Respiratory 18 Rate Blood Pressure 143/85 O2 Sat by Pulse 100 Oximetry Procedures - Laceration Laceration #1 Consent Obtained: verbal consent Indication: laceration Site: hand Size (cm): 2 Description: linear, clean Depth: simple, single layer Sedation/Analgesia: none Anesthetic Used: lidocaine 1% Anesthesia Technique: local infiltration Amount (mls): 3 Pre-repair: irrigated extensively, deep structures intact Type of Sutures: nylon Size of Sutures: 4-0 Number of Sutures: 3 Technique: simple, interrupted Patient Tolerated Procedure: well, no complications Medical Decision Making - Medical Decision Making 32-year-old female presenting to the emergency department chief complaint laceration. Patient is neurovascularly intact. Laceration site was thoroughly irrigated. Repair with 3 sutures. Patient tolerate the procedure well. Report advised to return in 10 days for removal. Tetanus is up-to-date. Disposition Clinical Impression: Laceration Disposition: HOME SELF-CARE Condition: Stable Instructions (If sedation given, give patient instructions): Care For Your Stitches (DC), Laceration (DC) Additional Instructions: Please return to the emergency room in 10 days to have sutures removed. Please watch for any signs of infection which may include increased pain, swelling, redness, fever or chills. Please return to emergency room for any signs of infection do occur. Please use clean soap and water over the area to prevent scabbing over your stitches. Please leave wound covered for the first 24-48 hours and then leave wound open to air. Please return to the emergency room for any other concerns. Is patient prescribed a controlled substance at d/c from ED?: No Referrals: Magali Dozier III, MD [Primary Care Provider] - 1-2 days Time of Disposition: 18:26
[2020-11-09] MEDS ORDERED: CHLOROPROCAINE 3% 30 MG/ML 20 ML VIAL MISCELLANE ONE (18:00)
== END 2020-11-09 19:01 | disposition home or self-care (01) ==
LOC: EC 17:26
DX: S61.210A Laceration without foreign body of right index finger without damage to nail, initial encounter (principal); F41.9 Anxiety disorder, unspecified; F32.9 Major depressive disorder, single episode, unspecified; Z79.899 Other long term (current) drug therapy; Z85.71 Personal history of Hodgkin lymphoma; W26.0XXA Contact with knife, initial encounter
CPT/HCPCS: 99282; 12001; J2400

== ENCOUNTER 2020-12-20 06:44 | Day surgery (SDC) | payer BC ==
[2020-11-15 08:42] VITALS: BMI 21.8
[~2020-12-20 06:44] MED LIST changes: +ACETAMINOPHEN TAB 500 MG TAB PO PRN; -DEXAMETHASONE SOD PHOSPHATE 10 MG/ML 1 ML VIAL IV ONE; +DEXAMETHASONE SOD PHOSPHATE 4 MG/ML 1 ML VIAL IV ONE; +HEPARIN SODIUM,PORCINE 5,000 UNIT/ML 1 ML VIAL SQ PRN; -HYDROmorphone 0.5 MG/0.5 ML SYRINGE IVP PRN; -Pre Op ABX Message 1 EACH MISC MISCELLANE ONE
[2020-12-20] MEDS ORDERED: MIDAZOLAM 2 MG/2 ML VIAL ONE (08:01)
[2020-12-20] MEDS ORDERED: PROPOFOL 10 MG/ML 20 ML VIAL IV ONE (08:01)
[2020-12-20] MEDS ORDERED: fentaNYL (PF) 50 MCG/ML 2 ML AMP ONE (08:01)
--- NOTE | 2020-12-20 08:02 | P.GSHP ---
History of Present Illness H&P Date: 12/20/20 Chief Complaint: Lymphoma Patient here today for Port-A-Cath removal. Port was placed in April of last year. Had some mild discomfort initially. No issues with function however. Completed chemotherapy in October. Past Medical History Past Medical History: Asthma, Cancer, Osteoarthritis (OA) Additional Past Medical History / Comment(s): DX WITH HOGDKINS LYMPOMA(last chemo 10/23/19)-, Reynaud's syndrome, migraines,mild exercise-induced asthma, arthritis in neck, History of Any Multi-Drug Resistant Organisms: None Reported Past Surgical History: Breast Surgery Additional Past Surgical History / Comment(s): [place] teeth extraction, Breast biopsy, port a cath insertion rt chest, lymph node biopsy Past Anesthesia/Blood Transfusion Reactions: No Reported Reaction Smoking Status: Former smoker - Past Family History Father Family Medical History: Hyperlipidemia Sister(s) Family Medical History: Hypertension Mother Family Medical History: No Reported History Medications and Allergies Home Medications Medication Instructions Recorded Confirmed Type FLUoxetine HCL [PROzac] 20 mg PO DAILY 11/15/20 12/20/20 History LORazepam [Ativan] 0.25 mg PO BID PRN 11/15/20 12/20/20 History Allergies Allergy/AdvReac Type Severity Reaction Status Date / Time lidocaine Allergy Red Verified 12/20/20 07:07 skin/burning/rash/itching prilocaine [From [place]ml[place]] Allergy Red Verified 12/20/20 07:07 skin/burning/rash/itching wasp Allergy Swelling/hi Uncoded 12/20/20 07:07 ves Surgical - Exam Vital Signs Temp Pulse Resp BP Pulse Ox 97.5 F L 88 16 119/74 98 12/20/20 07:05 12/20/20 07:05 12/20/20 07:05 12/20/20 07:05 12/20/20 07:05 Physical exam: General: Well-developed, well-nourished HEENT: Normocephalic, sclerae nonicteric Abdomen: Nontender, nondistended Extremities: No edema Neuro: Alert and oriented Assessment and Plan (1) Lymphoma Narrative/Plan: Will proceed with Port-A-Cath removal at this time. Current Visit: Yes Status: Acute Code(s): C85.90 - NON-HODGKIN LYMPHOMA, UNSPECIFIED, UNSPECIFIED SITE SNOMED Code(s): 497438485
[2020-12-20] MEDS ORDERED: NALOXONE 0.4 MG/ML 1 ML VIAL IV PRN (08:41)
--- NOTE | 2020-12-20 08:42 | P.OP ---
Date of Procedure: 12/20/20 Procedure(s) Performed: PREOPERATIVE DIAGNOSIS: Lymphoma POSTOPERATIVE DIAGNOSIS: Same PROCEDURE: Port-A-Cath removal SURGEON: Víctor EBL: Minimal ANESTHESIA: Sedation COMPLICATIONS: None OPERATIVE PROCEDURE: Patient was placed in the supine position. The patient was sedated per anesthesia that time. The chest was prepped and draped in the usual sterile fashion. The skin was localized with Marcaine solution. The previous incision was re-incised using a scalpel. The port was easily excised using acco mmodation of blunt dissection sharp dissection and electrocautery. The subcutaneous tissues were reapproximated using 3-0 Vicryl sutures. The skin was reapproximated using 4-0 Monocryl sutures. Skin glue was then applied. DISPOSITION: Stable to recovery room
[2020-12-20] MEDS: HYDROmorphone 0.5 MG/0.5 ML SYRINGE IVP PRN ×2 (08:50→09:11)
[2020-12-20 08:54] VITALS: TEMP 96.8
[2020-12-20 10:17] VITALS: BP 95/55; PULSE 70; RESP 16
== END 2020-12-20 10:50 | disposition home or self-care (01) ==
LOC: OR 06:44
PROVIDERS: ATTEND Surgery
DX: Z45.2 Encounter for adjustment and management of vascular access device (principal); C85.90 Non-Hodgkin lymphoma, unspecified, unspecified site; M19.90 Unspecified osteoarthritis, unspecified site; I73.00 Raynaud's syndrome without gangrene; G43.909 Migraine, unspecified, not intractable, without status migrainosus; M47.892 Other spondylosis, cervical region; J45.998 Other asthma; Z92.21 Personal history of antineoplastic chemotherapy; Z98.890 Other specified postprocedural states; Z87.891 Personal history of nicotine dependence; Z88.4 Allergy status to anesthetic agent; Z91.038 Other insect allergy status; Z83.438 Family history of other disorder of lipoprotein metabolism and other lipidemia; Z82.49 Family history of ischemic heart disease and other diseases of the circulatory system; Z83.49 Family history of other endocrine, nutritional and metabolic diseases
CPT/HCPCS: 81025; 36590; J2250; J1644; J1100; J0690; J2405; J3010; J2704; J1170

== ENCOUNTER → 2021-03-06 | Outpatient (CLI) | payer BC ==
--- NOTE | 2021-03-06 15:52 | CT ---
EXAMINATION TYPE: CT ChestAbdPelvis w con DATE OF EXAM: 03/06/2021 COMPARISON: 11/07/2020 HISTORY: Follow up for lymphoma. CT DLP: 460.3 mGycm Automated exposure control for dose reduction was used. CONTRAST: Performed with IV Contrast, patient injected with 100ml mL of Isovue 300. Images obtained from the thoracic inlet to the floor the pelvis with IV contrast. There is a 4 cm patch of infiltrate at the right cardiac border in the right middle lobe. There is no pleural effusion. The other lung lewis are clear. Heart size is normal. There is no pericardial eff usion. There is no mediastinal adenopathy. Thoracic aorta is intact. There is no aneurysm or dissection. The pulmonary arteries appear normal. There are no filling defects. Liver spleen stomach pancreas gallbladder appear normal. The bile ducts are not dilated. Kidneys show satisfactory contrast opacification. There is no hydronephrosis. There is no sign of retroperitoneal adenopathy. Bladder distends smoothly. There is no inguinal hernia. Uterus is anteverted. There is n o free fluid in the pelvis. There is no sign of mesenteric edema. There is no ascites or free air. There is no sign of bowel obst ruction. Appendix is partly filled with air and appears normal. Thoracic and lumbar vertebra show normal alignment. Posterior elements are intact. There is no compre ssion fracture. The bony pelvis is intact. Hip joints are intact. There is no axillary adenopathy. Th ere is no evidence of abdominal wall hernia. There is normal contrast opacification of the bowel. There is no sign of intestinal wall thickening. IMPRESSION: There is some chronic infiltrate at the right cardiac border in the right middle lobe that is unchang ed compared to old exam. No evidence of any new abnormality of the chest abdomen pelvis.
== END | disposition home or self-care (01) ==
LOC: RADCTMAIN 13:37
PROVIDERS: ATTEND Internal Medicine Hematology & Oncology
DX: C81.98 Hodgkin lymphoma, unspecified, lymph nodes of multiple sites (principal)
CPT/HCPCS: 71260; 74177; Q9967

== ENCOUNTER → 2021-06-27 | Outpatient (CLI) | payer BC ==
--- NOTE | 2021-06-27 15:19 | CT ---
EXAMINATION TYPE: CT ChestAbdPelvis wo/w con DATE OF EXAM: 06/27/2021 COMPARISON: 03/06/2021 and 11/07/2020 HISTORY: 41-year-old female C81.98 Hodgkin lymphoma, J45.998 asthma TECHNIQUE: Contiguous axial scanning of the , abdomen, and pelvis performed without and with IV Contr ast, patient injected with 100 mL of Isovue 300. Delayed images through the kidneys were obtained. Co bessy/sagittal reconstructions performed. CT DLP: 828.2 mGycm Automated exposure control for dose reduction was used. FINDINGS: CHEST: Heart normal size without pericardial effusion. Aorta normal caliber with conventional arch vessel branching anatomy. No thoracic lymphadenopathy by CT size criteria. Stable mild anterior mediastinal soft tissue suggesting some residual thymic tissue. Again, this is u nchanged. Focal medial anterior right midlung consolidation measuring 3.9 x 1.4 cm, unchanged. No new consolidation or pleural effusion. ABDOMEN: No focal liver lesion or biliary ductal dilatation. Portal venous system is patent. Gallbladder, adrenal glands, kidneys, spleen, and pancreas within normal limits. No dilated small bowel, free fluid, or free air. No mesenteric or retroperitoneal lymphadenopathy. Tiny fatty umbilical hernia. Retroaortic left renal vein. Oral contrast progressed to the splenic flexure of the colon. Mild stool burden. No pericolonic infla mmatory change. PELVIS: Uterus is anteverted. Both ovaries are visualized. No abnormal fluid collection in the pelvis or pelv ic lymphadenopathy. BONES: No osseous destructive process. IMPRESSION: 1. STABLE MEDIAL RIGHT MIDLUNG CONSOLIDATION, LIKELY SITE OF TREATED DISEASE. 2. NO ENLARGING MASS OR NEW LYMPHADENOPATHY TO SUGGEST RECURRENCE/PROGRESSION.
== END | disposition home or self-care (01) ==
LOC: RADCTMAIN 11:32
PROVIDERS: ATTEND Internal Medicine Hematology & Oncology
DX: C81.98 Hodgkin lymphoma, unspecified, lymph nodes of multiple sites (principal); M12.9 Arthropathy, unspecified; J45.998 Other asthma; F41.9 Anxiety disorder, unspecified
CPT/HCPCS: 71270; 74178; Q9967

== ENCOUNTER → 2021-10-29 | Outpatient (CLI) | payer BC, MEDICAID ==
[2021-10-29 08:02] LABS: African American GFR (CKD) >90 (>60 ml/min/1.73 sqM); Blood Urea Nitrogen 14 mg/dL (7-17); Non-African American GFR(CKD) >90 (>60 ml/min/1.73 sqM)
--- NOTE | 2021-10-29 09:32 | CT ---
EXAMINATION TYPE: CT soft tissue neck w con DATE OF EXAM: 10/29/2021 COMPARISON: 03/06/2019 HISTORY: follow up to lymphoma, swelling Lt side of neck CT DLP: 269.2 mGycm CONTRAST: CT scan of the neck is performed with IV Contrast, patient injected with 100 mL of Isovue 300. Contrast enhanced CT of the neck was performed from the skull base through the lung apices. AIRWAY: The supraglottic, glottic, and subglottic portions of the airway appear patent and free of mass. SALIVARY GLANDS: The submandibular and parotid glands are free of mass or inflammatory process. THYROID GLAND: No nodules or masses seen. LYMPH NODES: No adenopathy seen greater than 1cm. LUNG APICES: No nodule or mass is seen. OTHER: Vascular structures are patent. No significant degenerative change of the cervical spine. N o abscess seen. IMPRESSION: No evidence for adenopathy within the neck at this time.
--- NOTE | 2021-10-29 09:36 | CT ---
EXAMINATION TYPE: CT ChestAbdPelvis w con DATE OF EXAM: 10/29/2021 COMPARISON: 06/27/2021 HISTORY: follow up to lymphoma, swelling Lt side of neck CT DLP: 525.3 mGycm CONTRAST: CT scan of the chest, abdomen and pelvis is performed with Oral Contrast and with IV Contrast, patien t injected with 100 mL of Isovue 300. CT Chest: LUNGS: Stable right midlung consolidation which abuts the right atrium measures 3.2 x 1.5 cm versus 3 .6 x 1.5 cm previously. This may reflect the site of previously treated disease. No new areas of cons olidation identified. No pulmonary nodule or mass is detected. No pleural effusion or CT evidence of interstitial lung disease. MEDIASTINUM: Thoracic aorta is of normal caliber. The heart is not enlarged. No evidence for media stinal mass or adenopathy. HILAR STRUCTURES: No evidence for mass. No hilar adenopathy is appreciated. OTHER: No significant abnormality. CONTRAST CT ABDOMEN AND PELVIS FINDINGS: LIVER/GB: No calcified gallstones. No space occupying hepatic lesion. Biliary tree is of normal ca liber. PANCREAS: No inflammation. No distinct mass. SPLEEN: No splenic enlargement. No lesion seen. ADRENALS: No nodule. No thickening. KIDNEYS/BLADDER: No hydronephrosis. No nephrolithiasis. No disctinct renal mass. BOWEL: Normal appendix. Normal bowel caliber. No inflammation. GENITAL ORGANS: No gross abnormality. LYMPH NODES: No greater than 1cm abdominal or pelvic lymph nodes are appreciated. AORTA: No significant abnormality. OSSEOUS STRUCTURES: No significant abnormality is seen. OTHER: No significant additional abnormality is seen. IMPRESSION: 1. Stable examination without evidence for new adenopathy or recurrence/progression of disease. Stabl e area of consolidation right midlung.
== END | disposition home or self-care (01) ==
LOC: RADCTMAIN 07:22
PROVIDERS: ATTEND Internal Medicine Hematology & Oncology
DX: Z03.89 Encounter for observation for other suspected diseases and conditions ruled out (principal); C81.98 Hodgkin lymphoma, unspecified, lymph nodes of multiple sites
CPT/HCPCS: 82565; 84520; 70491; 71260; 74177; 36415; Q9967

== ENCOUNTER → 2022-01-01 | Outpatient (CLI) | payer MEDICAID, BC ==
--- NOTE | 2022-01-01 12:06 | MM ---
Reason for exam: clinical finding. Last mammogram was performed 2 years and 2 months ago. History: Patient has history of other cancer at age 38 and had first child at age 33. Benign MG stereo VAD BX RT of the right breast, March 10, 2019. Took hormonal contraceptives for 13 years beginning at age 19. Physical Findings: A clinical breast exam by your physician is recommended on an annual basis and results should be correlated with mammographic findings. MG 3D Diag Mammo W/Cad JUAN Bilateral CC and MLO view(s) were taken. Prior study comparison: November 03, 2019, right breast MG 3d diag mammo w/cad RT. March 07, 2019, bilateral MG 3d diag mammo w/cad JUAN. The breast tissue is extremely dense which could obscure a lesion on mammography. Finding: There are typically benign fine, diffuse/scattered calcifications in both breasts. Previous mammotome biopsy in the right breast. No significant changes in finding since November 03, 2019 and March 07, 2019. These results were verbally communicated with the patient and result sheet given to the patient on 01/01/22. ASSESSMENT: Incomplete: need additional imaging evaluation, BI-RAD 0 RECOMMENDATION: Ultrasound of both breasts.
--- NOTE | 2022-01-01 12:07 | USB ---
Reason for exam: additional evaluation requested from abnormal screening. History: Patient has history of other cancer at age 38 and had first child at age 33. Benign MG stereo VAD BX RT of the right breast, March 10, 2019. Took hormonal contraceptives for 13 years beginning at age 19. US Breast BILAT Right complete breast ultrasound includes all four quadrants, the retroareolar region and axilla. Finding demonstrates no cystic or solid lesion seen. Left complete breast ultrasound includes all four quadrants, the retroareolar region and axilla. Finding demonstrates no cystic or solid lesion seen. These results were verbally communicated with the patient and result sheet given to the patient on 01/01/22. ASSESSMENT: Negative, BI-RAD 1 RECOMMENDATION: Routine screening mammogram of both breasts at age 42. Manage patient on a clinical basis.
== END | disposition home or self-care (01) ==
LOC: RADMAMWWP 07:09
PROVIDERS: ATTEND Obstetrics & Gynecology
DX: R92.8 Other abnormal and inconclusive findings on diagnostic imaging of breast (principal)
CPT/HCPCS: 77062; 77066

== ENCOUNTER → 2022-04-07 | Outpatient (CLI) | payer MEDICAID, BC ==
--- NOTE | 2022-04-07 18:51 | US ---
EXAMINATION TYPE: US extremity nonvasc mass RT DATE OF EXAM: 04/07/2022 COMPARISON: NONE CLINICAL HISTORY: 41-year-old female C81.90 SWELLING BEHIND RIGHT KNEE. TECHNIQUE: Targeted ultrasound examination at the site of swelling behind the right knee. FINDINGS: Right popliteal fossa: Small to moderate-sized, 3.6 x 1.0 x 2.2cm cystic area at the site of patient' s concern. IMPRESSION: A small to moderate-sized 3.6 cm Choi's cyst at the right popliteal fossa corresponding to the site of concern.
== END | disposition home or self-care (01) ==
LOC: RADUSWWP 10:34
PROVIDERS: ATTEND Radiology Radiation Oncology
DX: C81.90 Hodgkin lymphoma, unspecified, unspecified site (principal)

== ENCOUNTER → 2022-05-05 | Outpatient (CLI) | payer MEDICAID, BC ==
--- NOTE | 2022-05-05 09:46 | CT ---
EXAMINATION TYPE: CT ChestAbdPelvis w con DATE OF EXAM: 05/05/2022 COMPARISON: 10/29/2021 HISTORY: Hx Hodgkin's Lymphoma. No reported issues at this time CT DLP: 520.8 mGycm CONTRAST: CT scan of the chest, abdomen and pelvis is performed with Oral Contrast and with IV Contrast, patien t injected with 70 mL of Isovue 300. CT Chest: LUNGS: Stable area of consolidation right middle lobe medially. No pulmonary nodule or mass is detect ed. No pleural effusion or CT evidence of interstitial lung disease. MEDIASTINUM: Thoracic aorta is of normal caliber. The heart is not enlarged. No evidence for media stinal mass or adenopathy. HILAR STRUCTURES: No evidence for mass. No hilar adenopathy is appreciated. OTHER: No evidence for axillary adenopathy. CONTRAST CT ABDOMEN AND PELVIS FINDINGS: LIVER/GB: No calcified gallstones. No space occupying hepatic lesion. Biliary tree is of normal ca liber. PANCREAS: No inflammation. No distinct mass. SPLEEN: No splenic enlargement. No lesion seen. ADRENALS: No nodule. No thickening. KIDNEYS/BLADDER: No hydronephrosis. No nephrolithiasis. No disctinct renal mass. BOWEL: Normal appendix. Normal bowel caliber. No inflammation. GENITAL ORGANS: 1.3 cm follicular cyst left ovary. The uterus and right ovary are unremarkable. LYMPH NODES: No greater than 1cm abdominal or pelvic lymph nodes are appreciated. AORTA: No significant abnormality. OSSEOUS STRUCTURES: No significant abnormality is seen. OTHER: No significant additional abnormality is seen. IMPRESSION: 1. No evidence for adenopathy at this time. 2. Stable area of consolidation right middle lobe.
== END | disposition home or self-care (01) ==
LOC: RADCTMAIN 07:32
PROVIDERS: ATTEND Internal Medicine Hematology & Oncology
DX: Z03.89 Encounter for observation for other suspected diseases and conditions ruled out (principal); C81.98 Hodgkin lymphoma, unspecified, lymph nodes of multiple sites
CPT/HCPCS: 71260; 74177; Q9967

== ENCOUNTER → 2023-08-25 | Outpatient (CLI) | payer MEDICAID ==
--- NOTE | 2023-08-26 08:02 | MM ---
Reason for Exam: Screening (asymptomatic). Last mammogram was performed 1 year(s) and 7 month(s) ago. Patient History: Menarche at age 16. First Full-Term at age 33. Late child-bearing (after 30). Premenopausal. Patient has history of breast feeding. Other cancer, age 38. Hormonal Contraceptives for 13 years from age 19 until age 32. 03/10/2019, Benign Core Biopsy on the right side. Last menstrual period: 08/04/2023 Risk Values: Analisa 5 year model risk: 1.2%. NCI Lifetime model risk: 15.0%. Prior Study Comparison: 10/16/2011 Bilateral Diagnostic Mammogram, [facility]. 03/07/2019 Bilateral Diagnostic Mammogram, [facility]. 11/03/2019 Right Diagnostic Mammogram, [facility]. 01/01/2022 Bilateral Diagnostic Mammogram, [facility]. Tissue Density: The breast tissue is extremely dense which could obscure a lesion on mammography. Findings: Analyzed By CAD. There is no suspicious group of microcalcifications or new suspicious mass in either breast. Stable scattered punctate calcifications throughout both breasts. Overall Assessment: Benign, BI-RAD 2 Management: Screening Mammogram of both breasts in 1 year. A clinical breast exam by your physician is recommended on an annual basis and results should be correlated with mammographic findings. Note on Analisa scores and lifetime risk: 1. A Analisa score greater than 3% is considered moderate risk. If this is the case, consider specialist referral to assess eligibility for a risk reducing agent. If overall lifetime risk for the development of breast cancer is 20% or higher, the patient may qualify for future screening with alternating mammogram and breast MRI. Electronically signed and approved by: Ran Payne D.O.
== END | disposition home or self-care (01) ==
LOC: RADMAMWWP 13:56
PROVIDERS: ATTEND Obstetrics & Gynecology
DX: Z12.31 Encounter for screening mammogram for malignant neoplasm of breast (principal)
CPT/HCPCS: 77063; 77067

== ENCOUNTER → 2024-01-31 | Outpatient (CLI) | payer MEDICAID ==
--- NOTE | 2024-01-31 10:35 | CT ---
EXAMINATION TYPE: CT ChestAbdPelvis w con DATE OF EXAM: 01/31/2024 COMPARISON: 12/25/2022 HISTORY: LYMPHOMA F/U CT DLP: 488.2 mGycm CONTRAST: CT scan of the chest, abdomen and pelvis is performed with Oral Contrast and with IV Contrast, patien t injected with 100 mL of Isovue 300. CT Chest: LUNGS: Soft tissue along the right cardiac border is unchanged and currently measures 3.0 x 1.3 cm ve rsus 3.3 x 1.2 cm. No new masses or nodules appreciated. No pleural effusion or CT evidence of inters titial lung disease. MEDIASTINUM: Thoracic aorta is of normal caliber. The heart is not enlarged. No evidence for media stinal mass or adenopathy. HILAR STRUCTURES: No evidence for mass. No hilar adenopathy is appreciated. OTHER: No significant abnormality. CONTRAST CT ABDOMEN AND PELVIS FINDINGS: LIVER/GB: No calcified gallstones. No space occupying hepatic lesion. Biliary tree is of normal ca liber. PANCREAS: No inflammation. No distinct mass. SPLEEN: No splenic enlargement. No lesion seen. ADRENALS: No nodule. No thickening. KIDNEYS/BLADDER: No hydronephrosis. No nephrolithiasis. No disctinct renal mass. BOWEL: Normal appendix. Normal bowel caliber. No inflammation. GENITAL ORGANS: No gross abnormality. LYMPH NODES: No greater than 1cm abdominal or pelvic lymph nodes are appreciated. AORTA: No significant abnormality. OSSEOUS STRUCTURES: No significant abnormality is seen. OTHER: No significant additional abnormality is seen. IMPRESSION: 1. No evidence for recurrent lymphoma. 2. Soft tissue masslike density along the right cardiac border is essentially unchanged.
== END | disposition home or self-care (01) ==
LOC: RADCTMAIN 08:26
PROVIDERS: ATTEND Family Medicine
DX: C81.90 Hodgkin lymphoma, unspecified, unspecified site (principal)
CPT/HCPCS: 71260; 74177; Q9967

== ENCOUNTER → 2024-10-04 | Outpatient (CLI) | payer MEDICAID ==
--- NOTE | 2024-10-05 18:55 | MM ---
Reason for Exam: Screening (asymptomatic). Last mammogram was performed 1 year(s) and 2 month(s) ago. Patient History: Menarche at age 16. First Full-Term at age 33. Late child-bearing (after 30). Premenopausal. Patient has history of breast feeding. Other cancer, age 38. Hormonal Contraceptives for 13 years from age 19 until age 32. 03/10/2019, Benign Core Biopsy on the right side. Risk Values: Analisa 5 year model risk: 1.3%. NCI Lifetime model risk: 14.8%. Prior Study Comparison: 11/03/2019 Right Diagnostic Mammogram, [facility]. 01/01/2022 Bilateral Diagnostic Mammogram, [facility]. 08/25/2023 Bilateral MG 3D screening mammo w/cad, [facility]. Tissue Density: The breasts are heterogeneously dense, which may obscure small masses. Findings: Analyzed By CAD. Microclip right breast from prior biopsy. A few scattered benign punctate calcifications are redemonstrated. No significant change or clear persisting abnormality on 3-D images. There is no suspicious group of microcalcifications or new suspicious mass in either breast. Overall Assessment: Benign, BI-RAD 2 Management: Screening Mammogram of both breasts in 1 year. Patient should continue monthly self-breast exams. A clinical breast exam by your physician is recommended on an annual basis. This exam should not preclude additional follow-up of suspicious palpable abnormalities. Note on Analisa scores and lifetime risk: 1. A Analisa score greater than 3% is considered moderate risk. If this is the case, consider specialist referral to assess eligibility for a risk reducing agent. 2. If overall lifetime risk for the development of breast cancer is 20% or higher, the patient may qualify for future screening with alternating mammogram and breast MRI. [facility], , 10/05/2024 6:53 PM. Electronically signed and approved by: Shen Monteiro M.D. Radiologist
== END | disposition home or self-care (01) ==
LOC: RADMAMWWP 11:11
PROVIDERS: ATTEND Family Medicine
DX: Z12.31 Encounter for screening mammogram for malignant neoplasm of breast (principal); R92.333 Mammographic heterogeneous density, bilateral breasts
CPT/HCPCS: 77063; 77067

== ENCOUNTER → 2025-02-14 | Outpatient (CLI) | payer MEDICAID ==
--- NOTE | 2025-02-14 16:03 | US ---
EXAMINATION TYPE: US thyroid st tissue head/neck DATE OF EXAM: 02/14/2025 COMPARISON: EXAMINATION TYPE: US thyroid st tissue head/neck DATE OF EXAM: 02/14/2025 COMPARISON: CT soft tissue neck 10/29/2021, PET CT 08/16/2020 CLINICAL INDICATION: Female, 44 years old with history of C81.91 HODGKIN LYMPHOMA, UNSP, LYMPH NODES OF HEAD; Hx of Lymphoma fullness in neck. TECHNIQUE: Multiple grayscale ultrasound images of the bilateral neck were obtained. FINDINGS/IMPRESSION: Scanned bilateral necks with no abnormalities seen. No lymphadenopathy identif ied. [facility], , 02/14/2025 4:01 PM
== END | disposition home or self-care (01) ==
LOC: RADUSWWP 15:33
PROVIDERS: ATTEND Radiology Radiation Oncology
DX: C81.91 Hodgkin lymphoma, unspecified, lymph nodes of head, face, and neck (principal)
CPT/HCPCS: 76536

== ENCOUNTER → 2025-03-13 | Outpatient (CLI) | payer MEDICAID ==
[2025-03-13 15:53] LABS: Basophils # (A) 0.02 X 10*3/uL (0.00-0.10); Basophils % (A) 0.2 %; Eosinophils # (A) 0.04 X 10*3/uL (0.04-0.35); Eosinophils % (A) 0.5 %; HCT 44.8 % (37.2-46.3); HGB 14.5 g/dL (12.0-15.0); Lymphocytes # (A) 0.94 X 10*3/uL (0.90-5.00); Lymphocytes % (A) 11.5 %; MCH 32.6 pg (27.0-32.0); MCHC 32.4 g/dL (32.0-37.0); MCV 100.7 FL (80.0-97.0); Mean Platelet Volume 8.7 FL (9.5-12.2); Monocytes # (A) 0.52 X 10*3/uL (0.20-1.00); Monocytes % (A) 6.3 %; NRBC Per 100 WBC 0 X 10*3/uL (0.00-0.01); Neutrophils # (A) 6.62 X 10*3/uL (1.80-7.70); Neutrophils % (A) 80.9 %; Platelet Count 377 X 10*3/uL (140-440); RBC 4.45 X 10*6/uL (4.10-5.20); WBC 8.19 X 10*3/uL (4.50-10.00)
[2025-03-13 16:06] LABS: ALT 32 U/L (8-44); AST 36 U/L (13-35); Albumin 4.8 g/dL (3.8-4.9); Albumin/Globulin Ratio 1.85 Ratio (1.60-3.17); Alkaline Phosphatase 82 U/L (41-126); BUN/Creat Ratio 14.29 Ratio (12.00-20.00); Calcium 10.2 mg/dL (8.7-10.3); Carbon Dioxide 25.4 mmol/L (21.6-31.8); Chloride 100 mmol/L (96-109); Chol/HDL Ratio 2.02 Ratio; Globulin 2.6 g/dL (1.6-3.3); Glucose 102 mg/dL (70-110); LDL Cholesterol,Calculated 111.3 mg/dL (0.0-131.0); Potassium 4.3 mmol/L (3.5-5.5); Sodium 139 mmol/L (135-145); Total Bilirubin 0.6 mg/dL (0.3-1.2); Total Protein 7.4 g/dL (6.2-8.2); VLDL Calculation 11.72 mg/dL (5.00-40.00)
== END | disposition home or self-care (01) ==
LOC: LABWHC1 08:43
PROVIDERS: ATTEND Family Medicine
DX: Z13.228 Encounter for screening for other metabolic disorders (principal); I10 Essential (primary) hypertension; E55.9 Vitamin D deficiency, unspecified
CPT/HCPCS: 36415; 80053; 80061; 82306; 83036; 84443; 85025

== ENCOUNTER → 2025-05-17 | Outpatient (CLI) | payer MEDICAID ==
[2025-05-17 19:21] LABS: Anion Gap 14.90 mmol/L (4.00-12.00); BUN/Creat Ratio 14.38 Ratio (12.00-20.00); Blood Urea Nitrogen 11.5 mg/dL (9.0-27.0); Calcium 9.7 mg/dL (8.7-10.3); Carbon Dioxide 23.1 mmol/L (21.6-31.8); Chloride 101 mmol/L (96-109); Glucose 114 mg/dL (70-110); Potassium 4.5 mmol/L (3.5-5.5); Sodium 139 mmol/L (135-145)
== END | disposition home or self-care (01) ==
LOC: LABWHC1 15:20
PROVIDERS: ATTEND Family Medicine
DX: I10 Essential (primary) hypertension (principal)
CPT/HCPCS: 36415; 80048